=== PATIENT | female | born 1990 | race African-American/Black ===

== ENCOUNTER 2023-09-10 14:21 | Emergency (ER) | payer OTHER ==
[~2023-09-10] VITALS: Ht 167.6 cm; Wt 114.3 kg
[2023-09-10 14:28] VITALS: BP_SYST 161; PULSE 90; RESP 18; TEMP 97.1; O2SAT 98
[2023-09-10] MEDS ORDERED: BACITRACIN 1 GM OINT TP ONE (15:36)
[2023-09-10] MEDS ORDERED: LIDOCAINE 1%, 20 ML MDV 20 ML ONE (15:38)
[2023-09-10] MEDS: DIPHTH,PERTUSS(ACELL),TET VAC 0.5 ML VIAL (Tdap) I.M. ONE (16:03)
[2023-09-10] MEDS: KETOROLAC TROMETHAMINE 60 MG/2 ML VIAL IM ONE (16:04)
[2023-09-10] MEDS: BACITRACIN ZINC 15 GM TOPICAL OINTMENT TP ONE (16:05)
[2023-09-10] MEDS: LIDOCAINE 2%, 20 ML MDV INJ ONE (16:30)
[2023-09-10 17:53] VITALS: BP_SYST 154; PULSE 78; RESP 16; TEMP 97.1; O2SAT 98
[2023-09-10] MEDS ORDERED: CEPH-548 PO (17:53)
[2023-09-10] MEDS ORDERED: IBUP-1969 PO (17:53)
[2023-09-10] MEDS ORDERED: NEOM28.36 TP (17:53)
[2023-09-10] MEDS: cephALEXin 500 MG CAPSULE PO ONE (18:02)
== END 2023-09-10 17:53 | disposition home or self-care (01) ==
LOC: SED 14:21
DX: S61.412A Laceration without foreign body of left hand, initial encounter (principal); S00.81XA Abrasion of other part of head, initial encounter; S09.90XA Unspecified injury of head, initial encounter; Z23 Encounter for immunization; V89.2XXA Person injured in unspecified motor-vehicle accident, traffic, initial encounter; Y93.89 Activity, other specified; Y92.89 Other specified places as the place of occurrence of the external cause; Y99.8 Other external cause status
CPT/HCPCS: 99285; 12042; 70450; 73080; 73090; 73130; 70486; 90715; 81025; 90471; 96372; J1885; J2001